=== PATIENT | female | born 1995 ===

== ENCOUNTER → 2025-04-12 14:30 | Outpatient (REF) | payer OTHER, SELFPAY ==
--- NOTE | 2025-05-08 | HM_ITS ---
* Total monitoring time 3 days. * Underlying rhythm is sinus with an average rate of 100/Min. About 48% of the time, rate > 100/Min. * Rare supraventricular ectopy. * Isolated ventricular ectopic beat. * Dizziness/lightheadedness in patient diary correlates with sinus rhythm and sinus tachycardia. MTDD
--- OUTSIDE RECORDS SUMMARY | 2025-05-08 19:25 | XMS_ITS | Encounter Summary ---
Author Organization [facility] Address [address] [facility] [address] [facility] [address] [place] [address] Phone Care Team Providers Care Unhairing Machine Operator Name Role Phone Cathy Latif MD Primary Care P rovider Pierce Soto MD Unavailable [phone] Cathy Latif MD Primary Care P rovider Pcp, Unknown Primary Care Provider Unavailabl e Encounter Details Date Type Department Care Team (Late st Contact Info) Description 01/27/2022 Procedure Pass [facility], Ct Scan - [facility] [address] [place] [address] Social History Tobacco Use Types Packs/Day Years Used Date Smoking Tobacco: Never Smokeless Tobacco: Never Alcohol Use Standard Drinks/Week Comments Not Currently 0 (1 standard drink = 0.6 oz pur e alcohol) Comments Unknown Sex and Gender Information Value Date Recorded Sex Assigned at Female 05/01/2020 5:54 PM EDT Legal Sex Female 4:31 PM EST Gender Identity Female 05/01/2020 5:54 PM EDT Sexual Orientation Straight 05/03/2020 10 :51 AM EDT documented as of this encounter Plan of Treatment Upcoming Encounters Date Type Department Care Team (Late st Contact Info) Description 04/12/2025 Procedure Pass [facility] Echo Lab [address] [place] [address] 05/16/2025 7:30 AM EDT Appointment [facility] Echo Lab [address] [place] [address] Arleth Henderson, DO [address] [place] [address] [email or web address] 05/16/2025 9:00 AM EDT Infusion [facility] at [address] [address] Arleth Henderson, [address] [place] [address] [email or web address] 05/25/2025 12:00 PM EDT Routine [facility] OBGYN & Midwifery [address] [place] [address] [place] [address] Bety Elmore MD [address] [place] [address], [address] [place] [address] 08/03/2025 2:20 PM EST Infusion [facility] at [address] [address] Arleth Henderson, [address] [place] [address] [email or web address] 08/03/2025 3:30 PM EST Office Visit [facility] at [address] [address] Phuong Terry MBBS [address] [place] [address] documented as of this encounter Visit Diagnoses Not on filedocumented in this encounter Additional Health Concerns Infection Onset Date Last Indicated Resolved Time COVID-19 04/21/2025 04/21/2025 documented as of this encounter Care Teams Unhairing Machine Operator Relationship Specialty Start Date End Date Cathy Latif MD [email or web address] PCP - General Internal Medicine 09/21/19 04/02/23 Cathy Latif MD [address] [place] [address] [email or web address] PCP - General Internal Medicine 04/03/23 03/29/25 Pcp, Unknown PCP - General 03/30/25 Pierce Soto MD [address] [place] [id number] [email or web address] Primary Oncologist Medical Oncology 08/06/20 documented as of this encounter Additional Source Comments The information contained in this document represents components of the legal health record. It is not the complete legal health record.[facility]
--- OUTSIDE RECORDS SUMMARY | 2025-05-08 19:25 | XMS_ITS ---
Author Organization [facility] Address [address] [facility] [address] [place] [address] Phone Care Team Providers Care Pickle Processor Name Role Phone Pierce Soto MD Unavailable [phone] Pcp, Unknown Primary Care Provider Unavailabl e Active Problems Patient Care Coordination No te Formatting of this note migh t be different from the original. Height 171cm no shoes 10/07/21 [employer] fax# [phone] (for Rituxan scripts) [employer] ph# [phone] Problem Noted Date Diagnosed Date Nausea/vomiting in 03/21/2025 Assessment & Plan (03/21/2025 12:15 PM EDT): Has actually worsened since last visit. Feels nauseated all day but worst in the morning. Vomits mostly with odor sensitivity. Has low appetite and food aversions, sometimes vomits right after breakfast. Worsened with doxylamine. We reviewed dietary measures and non-pharmacologic remedies. Also suggested she try meclizine (benadryl makes her too drowsy) and zofran for breakthrough nausea. Reviewed potential side effects for each. Check in at n.v. Rubella non-immune status, antepartum 03/16/2025 Maternal varicella, non-immune 03/16/2025 Obesity 03/07/2025 Overview (03/21/2025): Obesity in (BMI >30) BMI at Intake Date Obesity plan of care discussed Pre- BMI > 48 by 32 weeks' gestation, transfer to tertiary care Recommend daily baby aspirin (162 mg daily) if another risk factor is present (nulliparity, family h/o pre-eclampsia in mother or sister, age >= 35, IVF , previous with SGA, previous stillbirth, interval >= 10 years between pregnancies) First trimester screen for diabetes - HgbA1c or 1-hr glucose tolerance test Nutrition counseling 11-20lb weight gain surveillance: Pre- BMI 35.0-39.9, weekly testing at 36 weeks, EFW at 32 and 36 weeks Pre- BMI 40 or more, weekly testing at 34 weeks, EFW 32 and 36 weeks Induction only if indicated PP joelle according to guidelines Struggled to lose weight prior to but could not Feels she's never been in shape, does 10-15k steps daily, hikes a hill every day Tries to eat healthy, berries, avocados salmon. Fixed weight now for some time at her functional maximum around 200lbs. Doing well so far Assessment & Plan (03/09/2025 11:30 AM EDT): We discussed the implications of a maternal BMI > 30. We discussed the increased risks of miscarriage, defects (mainly congenital heart disease and neural tube defects), gestational diabetes, hypertensive disorders of , delivery, and perioperative complications such as wound infection and thromboembolic events. We discussed a general recommendation growth ultrasounds at 32 and 36 weeks. She is aware that we do not recommend early delivery if the antepartum testing remains reassuring. ASCUS (atypical squamous hattie ls of undetermined significance) on gynecologic Papanicolaou smear complicating , antepartum 02/23/2025 Overview (04/18/2025): HPV negative , supervision of, high-risk[facility] Overview (04/28/2025): MD Group PN care? * screening plans cfDNA Baby ASA? yes Rh pos GC/Chlam neg PAP ASCUS HPV 02/2025, repeat one year Flu * COVID-19 * Hgb * GTT * Repeat RPR * Tdap * EPDS * PPBC * GBS * Feeding Plan * MFM consult 03/07/25: 24-hr urine recommended in early , q trimester assessment of Cr and LFTs Has a lot of fear because her mother had many miscarriages, including one at 20 weeks Would go to visits and had no heartbeat seen, suspects may have been due to gestational diabetes but does not have diabetes outside of . 3 miscarriages. Assessment & Plan (03/21/2025 12:14 PM EDT): Janette is still having a lot of nausea and vomiting, see problem list for plan. Also having some lower abdominal cramping - we discussed that this is likely secondary to uterine growth, also reviewed warning signs and reasons to call practice. Discussed and scheduled anatomy scan. Assessment & Plan (03/07/2025 3:00 PM EDT): Currently 15 weeks Had some bleeding at 7 weeks Assessment & Plan (02/20/2025 5:24 PM EDT): Barring any complications from a potential recurrent NHL, anticipate this will be uncomplicated. 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 10/03/2019 Overview (03/07/2025): Diagnosed in 2019 Was asymptomatic, was planning to fly to the for grad school and had routine blood work Also had some abnormal abdominal pain Blood plus imaging diagnosed an eggplant sized tumor and multiple others Treated with chemotherapy in [place], Rituximab and Bendamustine, had 6 cycles in [facility], completed treatment there and was considered cancer free after 3 cycles Has a chemo port, doesn't have a removal plan, maybe after the In began maintenance therapy with chemo and monoclonal antibody - > Stopped mid [address] scans since 2019 As of intake, not taking meds. Last scan 08/2024, plan for every 2-3 years Had clearance for by Oncology Liver and kidney function checked every 3-6 months. Never required any cardiac checks Feels well Assessment & Plan (03/21/2025 12:12 PM EDT): She had MFM consult, note in chart. No specific recs except to check 24-hr urine protein, and assess Cr and LFTs q trimester. Lab orders entered today. Assessment & Plan (03/09/2025 11:29 AM EDT): We discussed that in general in would not be anticipated that her history of lymphoma would have an increased recurrence risk related to the hormones of . That being said, her surveillance with her team should continue as previously scheduled. Imaging for recurrence is available in . Additionally, is not a contraindication to certain treatments were there to be a recurrence. From the standpoint of impact on , her prior medications may have some residual impact on her liver and kidneys, although her laboratory studies in general thus far have been favorable. We discussed that kidneys are responsible for blood pressure management, and so injured kidneys may indicate a higher possibility of preeclampsia risk. I recommend surveillance of Cr and LFTs each trimester, and a 24 hour urine protein/creatinine collection in early . Beyond these concerns, I would overall anticipate the highest likelihood for Janette to have an uncomplicated future with plan for full term labor and vaginal delivery. Assessment & Plan (02/20/2025 5:24 PM EDT): Has been in remission for a couple of years. Had recently normal lab work. Plan for repeat lab work at the end of July or early August. She is [place] [facility] [place] [facility]. Her CT scan in August of this year showed no evidence of active disease. She does have a chemotherapy port in place which she has not yet had removed. 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 Past Treatment and Therapy Plans TREATMENT PLAN Plan Name Start Date Discontinue Date Treatment Medications Discontinue Reason Plan Provider Cycles RITUXIMAB (IV/SQ) MAINTENANCE EVERY 12 WEEKS [facility] 11/09/19 20 04/10/2021 riTUXimabriTUXimab (RITUXAN) IVPB in NS 1 mg/mLriTUXimab (RITUXAN) IVPB 250 mL (250 mg - 1000 mg) (QS Base) g. Patient Preference Pierce Soto MD 6 of 7 cycles started RITUXIMAB (IV/SQ) MAINTENANCE EVERY 12 WEEKS 11/09/1910/03/2019 No medications scheduled. m. Entered in error Pierce Soto MD No cycles in plan RITUXIMAB (IV/SQ) MAINTENANCE EVERY 8 WEEKS 10/10/1910/03/2019 No medications scheduled. m. Entered in error Pierce Soto MD Treatment not started Resolved Problems Problem Noted Date Diagnosed Date Resolved Date Follicular lymphoma 02/10/2019 04/28/20 25
--- OUTSIDE RECORDS SUMMARY | 2025-05-08 19:25 | XMS_ITS | Encounter Summary ---
Author Organization [facility] Address [address] [facility] [address] [place] [address] Phone Care Team Providers Care Scada Engineer Name Role Phone Pierce Soto MD Unavailable [phone] Cathy Latif MD Primary Care P [email or web address] Pcp, Unknown Primary Care Provider Unavailabl e Encounter Details Date Type Department Care Team (Late st Contact Info) Description 08/22/2024 Procedure Pass [facility], Ct Scan - [facility] [address] [place] [address] Social History Tobacco Use Types Packs/Day Years Used Date Smoking Tobacco: Never Smokeless Tobacco: Never Alcohol Use Standard Drinks/Week Comments Not Currently 0 (1 standard drink = 0.6 oz pur e alcohol) Education Answer Date Recorded Are you interested in more education? Not on otf e 12/19/2022 Are you concerned about learning? Not on file 12/19/2022 No 12/19/2022 No 12/19/2022 Digital Access Answer Date Recorded No 01/17/2023 No 01/17/2023 Reliable internet access at home? Not on file 01/17/2023 Device with a working camera? Not on file Intimate Partner Violence Answer Date R ecorded Are you denied basic needs s uch as food, clothing, or medical care? No 08/21/2024 In the past 12 months have y ou been in a relationship with a person who hurts, threatens, or tries to control you? No 08/21/2024 Are you denied basic needs s uch as food, clothing, or medical care? No 08/21/2024 In the past 12 months have y ou been in a relationship with a person who hurts, threatens, or tries to control you? No 08/21/2024 Comments Unknown Sex and Gender Information Value Date Recorded Sex Assigned at Female 05/01/2020 5:54 PM EDT Legal Sex Female 4:31 PM EST Gender Identity Female 05/01/2020 5:54 PM EDT Sexual Orientation Straight 05/03/2020 10 :51 AM EDT documented as of this encounter Plan of Treatment Upcoming Encounters Date Type Department Care Team (Late st Contact Info) Description 04/12/2025 Procedure Pass [facility] Echo Lab [address] [place] [address] 05/16/2025 7:30 AM EDT Appointment [facility] Echo Lab [address] [place] [address] Arleth Henderson, DO [address] [place] [address] [email or web address] 05/16/2025 9:00 AM EDT [facility] at [address] [address] Arleth Henderson, DO [address] [place] [address] [email or web address] 05/25/2025 12:00 PM EDT Routine [facility] OBGYN & Midwifery [address] [place] [address] [place] [address] Bety Elmore MD [address] [place] [address], [address] [place] [address] 08/03/2025 2:20 PM EST Infusion [facility] at [address] [address] Arleth Henderson, DO [address] [place] [phone] [email or web address] 08/03/2025 3:30 PM EST Office Visit [facility] at [address] [address] Phuong Terry MBBS [address] [place] [address] [email or web address] documented as of this encounter Visit Diagnoses Not on filedocumented in this encounter Additional Health Concerns Infection Onset Date Last Indicated Resolved Time COVID-19 04/21/2025 04/21/2025 documented as of this encounter Care Teams Scada Engineer Relationship Specialty Start Date End Date Cathy Latif MD [address] [place] [address] [email or web address] PCP - General Internal Medicine 04/03/23 03/29/25 Pcp, Unknown PCP - General 03/30/25 Pierce Soto MD [address] [place] [address] [email or web address] Primary Oncologist Medical Oncology 08/06/20 documented as of this encounter Additional Source Comments The information contained in this document represents components of the legal health record. It is not the complete legal health record.[facility]
--- OUTSIDE RECORDS SUMMARY | 2025-05-08 19:25 | XMS_ITS | Encounter Summary ---
Author Organization [facility] Address [address] [place] [address] [place] [address] Phone Care Team Providers Care Production Recovery Operator Name Role Phone Pierce Soto MD Unavailable [phone] Pcp, Unknown Primary Care Provider Unavailabl e Reason for Referral * Outpatient Procedure - Authorized Specialty Diagnoses / Procedures Referred By [facility] Referred To Contact Radiology Diagnoses Tachycardia, unspecified Procedures Adult Echo TTE Arleth Henderson DO [address] [place] [address] Phone: tel: fax: [email or web address] Referral ID Status Reason Start Date Expiration Date V isits Requested Visits Authorized [id number] Authorized 04/12/2025 04/12/2026 1 1 Encounter Details Date Type Department Care Team (Late st Contact Info) Description 04/12/2025 Transcribe Orders Virtual Department [address] [place] [address] Arleth Henderson DO [address] [place] [address] [email or web address] Tachycardia, unspecified (Primary Dx) Social History Tobacco Use Types Packs/Day Years [...] as food, clothing, or medical care? No 01/10/2025 In the past 12 months have y ou been in a relationship with a person who hurts, threatens, or tries to control you? No 01/10/2025 Are you denied basic needs s uch as food, clothing, or medical care? No 01/10/2025 In the past 12 months have y ou been in a relationship with a person who hurts, threatens, or tries to control you? No 01/10/2025 Estimated Date of Delivery Comme nts Yes 08/27/2025 Based on last me nstrual period of 11/20/2024 (Exact Date) Sex and Gender Information Value Date Recorded Sex Assigned at Female 05/01/2020 5:54 PM EDT Legal Sex Female 4:31 PM EST Gender Identity Female 05/01/2020 5:54 PM EDT Sexual Orientation Straight 05/03/2020 10 :51 AM EDT documented as of this encounter Plan of Treatment Upcoming Encounters Date Type Department Care Team (Late st Contact Info) Description 04/12/2025 Procedure Pass [facility] Echo Lab [address] [place] [address] 05/16/2025 7:30 AM EDT Appointment [facility] Echo Lab [address] [place] [address] Arleth Henderson, DO [address] [place] [phone] [email or web address] 05/16/2025 9:00 AM EDT Infusion [facility] at [address] [address] Arleth Henderson DO [address] [place] [address] [email or web address] 05/25/2025 12:00 PM EDT Routine [facility] OBGYN & Midwifery [address] [place] [address] [place] [address] Bety Elmore MD [address] [place] [address], [address] [place] [address] 08/03/2025 2:20 PM EST Infusion [facility] at [address] [address] Arleth Henderson DO [address] [place] [address] [email or web address] 08/03/2025 3:30 PM EST Office Visit [facility] at [address] [address] Phuong Terry MBBS [address] [place] [phone] [email or web address] Scheduled Orders Name Type Priority Associated Diagnoses Orde r Schedule Adult Echo TTE Echocardiography Routine Tachycardia, unspecified Expected: 04/12/2025, Expires: 04/12/2026 documented as of this encounter Visit Diagnoses Diagnosis Tachycardia, unspecified- Primary documented in this encounter Additional Health Concerns Infection Onset Date Last Indicated Resolved Time COVID-19 04/21/2025 04/21/2025 documented as of this encounter Care Teams Production Recovery Operator Relationship Specialty Start Date End Date Pcp, Unknown PCP - General 03/30/25 Pierce Soto MD [address] [place] [phone] ([email or web address] Primary Oncologist Medical Oncology 08/06/20 documented as of this encounter Additional Source Comments The information contained in this document represents components of the legal health record. It is not the complete legal health record.[facility]
--- OUTSIDE RECORDS SUMMARY | 2025-05-08 19:25 | XMS_ITS | Encounter Summary ---
Author Organization [facility] Address [address] [place] [phone] Phone Care Team Providers Care Network Architect Name Role Phone Pierce Soto MD Unavailable [phone] Cathy Latif MD Primary Care P rovider Pcp, Unknown Primary Care Provider Unavailabl e Encounter Details Date Type Department Care Team (Late st Contact Info) Description 07/27/2024 Transcribe Orders Virtual Department [address] [place] [address] Clair Mauricio CNP [address] [place] [id number] [email or web address] PCOS (polycystic ovarian syndrome) (Primary Dx) Social History Tobacco Use Types [...] with a working camera? Not on file Comments Unknown Sex and Gender Information Value Date Recorded Sex Assigned at Female 05/01/2020 5:54 PM EDT Legal Sex Female 4:31 PM EST Gender Identity Female 05/01/2020 5:54 PM EDT Sexual Orientation Straight 05/03/2020 10 :51 AM EDT documented as of this encounter Plan of Treatment Upcoming Encounters Date Type Department Care Team (Late st Contact Info) Description 04/12/2025 Procedure Pass [facility] [address] [place] [address] 05/16/2025 7:30 AM EDT Appointment [facility] [address] [place] [address] Arleth Henderson, [address] [place] [address] [email or web address] 05/16/2025 9:00 AM EDT Infusion [facility] at [address] [address] Arleth Henderson, [address] [place] [address] [email or web address] 05/25/2025 12:00 PM EDT Routine [facility] [address] [place] [address] [place] [address] Bety Elmore MD [address] [place] [address], [address] [place] [address] 08/03/2025 2:20 PM EST Infusion [facility] at [address] [address] Arleth Henderson DO [address] [place] [address] [email or web address] 08/03/2025 3:30 PM EST Office Visit [facility] at [address] [place] [address] Phuong Terry MBBS [address] [place] [address] [email or web address] documented as of this encounter Results * US PELVIS TRANSABDOMINAL PLUS TRANSVAGINAL WITH DOPPLER (08/25/2024 4:54 PM EST) Anatomical Region Laterality Modality Pelvis, Uterus/Adnexa Ultrasound 08/25/2024 5:40 PM EST Impressions 08/25/2024 5:43 PM EST Normal pelvic ultrasound. Narrative 08/25/2024 5:43 PM EST US PELVIS TRANSABDOMINAL PLUS TRANSVAGINAL WITH DOPPLER Referring clinician's provided indication for this examination in Epic: Outside Radiology Order; POS TECHNIQUE: Pelvic Ultrasound Transabdominal performed for global imaging of the pelvis. Pelvic Ultrasound Transvaginal performed for detailed imaging of the endometrium and/or adnexa. Color and spectral Doppler examination performed. COMPARISON: CT ABDOMEN/PELVIS WITH CONTRAST FINDINGS: Uterus: Size: 6 x 3.1 x 4 cm. Myometrium: Normal. Endometrium: Normal. Thickness: 3 mm. Right adnexa: Ovary: Normal 2.6 x 2.9 x 1.8 cm Adnexal Doppler: Color and spectral Doppler of the right ovary shows normal arterial and venous waveforms. Left adnexa: Ovary: Normal 2.2 x 1.5 x 1.3 cm Adnexal Doppler: Color and spectral Doppler of the left ovary shows normal arterial and venous waveforms. Free fluid: No significant free fluid. Procedure Note Harinder Vaca MD - 08/25/2024 US PELVIS TRANSABDOMINAL PLUS TRANSVAGINAL WITH DOPPLER Referring clinician's provided indication for this examination in Epic:Outside Radiology Order; POS TECHNIQUE: Pelvic Ultrasound Transabdominal performed for global imagingof the pelvis. Pelvic Ultrasound Transvaginal performed for detailedimaging of the endometrium and/or adnexa. Color and spectral Dopplerexamination performed. COMPARISON: CT ABDOMEN/PELVIS WITH CONTRAST FINDINGS: Uterus: Size: 6 x 3.1 x 4 cm. Myometrium: Normal. Endometrium: Normal. Thickness: 3 mm. Right adnexa: Ovary: Normal 2.6 x 2.9 x 1.8 cm Adnexal Doppler: Color and spectral Doppler of the right ovary showsnormal arterial and venous waveforms. Left adnexa: Ovary: Normal 2.2 x 1.5 x 1.3 cm Adnexal Doppler: Color and spectral Doppler of the left ovary shows normalarterial and venous waveforms. Free fluid: No significant free fluid. IMPRESSION: Normal pelvic ultrasound. us Laisa-Sheili Mauricio FIELD PROJECT MANAGER IMG US PELVIS Final Re sult documented in this encounter Visit Diagnoses Diagnosis PCOS (polycystic ovarian syndrome)- Primary Polycystic ovaries PCOS (polycystic ovarian syndrome) Polycystic ovaries documented in this encounter Additional Health Concerns Infection Onset Date Last Indicated Resolved Time COVID-19 04/21/2025 04/21/2025 documented as of this encounter Care Teams Network Architect Relationship Specialty Start Date End Date Cathy Latfi MD [address] [place] [address] [email or web address] PCP - General Internal Medicine 04/03/23 03/29/25 Pcp, Unknown PCP - General 03/30/25 Pierce Soto MD [address] [place] [id number] [email or web address] Primary Oncologist Medical Oncology 08/06/20 documented as of this encounter Additional Source Comments The information contained in this document represents components of the legal health record. It is not the complete legal health record.[facility]
--- OUTSIDE RECORDS SUMMARY | 2025-05-08 19:25 | XMS_ITS | Clinical Summary ---
Author Organization [facility] Address [address] [place] [phone] Phone Care Team Providers Care Furniture Sales Consultant Name Role Phone Pierce Soto MD Unavailable [phone] Pcp, Unknown Primary Care Provider Unavailabl e Allergies Active Allergy Reactions Criticality Noted Date Comments Cycloserine Nausea and/or Vomiting 10/03/2019 Medications 28 mg iron- 800 mcg Tab Take 1 tablet by mouth daily. 5 Active meclizine (ANTIVERT) 25 mg tablet Take 1 tablet (25 mg total) by mouth every 8 (eight) hours as needed for nausea. 60 tablet 1 5 Active ondansetron (ZOFRAN-ODT) 4 MG disintegrating tablet Take 1 tablet (4 mg total) by mouth every 8 (eight) hours as needed for nausea. 45 tablet 1 5 Active aspirin 81 mg chewable tablet Take 2 tablets (162 mg total) by mouth daily. 180 tablet 2 5 Active ferrous sulfate 325 mg (65 mg [place] iron) tablet Take 1 tablet (325 mg total) by mouth daily with breakfast. 90 tablet 5 Active Active Problems Patient Care Coordination No te Formatting of this note migh t be different from the original. Height 171cm no shoes 10/07/21 [facility] fax# [phone] (for Rituxan scripts) [facility] ph# [phone] Problem Noted Date Diagnosed Date Nausea/vomiting in [...] and 36 weeks Induction only if indicated PRIYA lai according to guidelines Struggled to lose weight [...] HPV negative , supervision of, high-risk, second [facility] 02/16/2025 Overview (04/28/2025): MD Group PN care? 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 Assessment & Plan (02/20/2025 5:24 PM EDT): Has been in remission for a couple of years. Had recently normal lab work. Plan for repeat lab work at the end of July or early August. She is followed by hematology oncology at the [facility]. Her CT scan in August of this year showed no evidence of active disease. She does have a chemotherapy port in place which she has not yet had removed. Estimated Date of Delivery Comme nts Yes 08/27/2025 Based on last me nstrual period of 11/20/2024 (Exact Date) Resolved Problems Problem Noted Date Diagnosed Date Resolved Date Follicular lymphoma 02/10/2019 04/28/20 Encounters Date Type Department Care Team Description 05/02/2025 10:20 AM EDT Routine [facility]ery [address] [place] [address] [place] [address] Paul Rojas MD GA: 23w2d 05/01/2025 9:59 AM EDT - 05/01/2025 11:59 PM EDT [facility] [address] [place] [address] Ananya Chavez CNM Discharge Disposition: Home or Self Care 04/28/2025 1:30 PM EDT Routine [facility] [address] [place] [address] [place] [address] Corine Rosen MD GA: 22w5d 04/23/[address] [facility] Obstetrics - Virtual Department [address] [place] [address] Paul Rojas MD OB Concern 04/21/2025 Telephone [facility] Midw[facility]ery [address] [place] [address] [place] [address] Hill Briceno LPN Covid positive 04/18/2025 8:40 AM EDT Routine [facility] Midwifery [address] [place] [address] [place] [address] Paul Rojas MD GA: 21w2d 04/17/2025 Telephone [facility] Midw[facility]ery [address] [place] [address] [place] [address] Riana Bautista CNM COVID-19 Inquiry 04/13/2025 Telephone [facility] at [address] [address] Pierce Soto MD 04/12/2025 Transcribe Orders Virtual Department [address] [place] [address] Arleth Henderson, DO Tachycardia, unspecified (Primary Dx) 04/06/2025 4:30 PM EDT - 04/06/2025 11:59 PM EDT Hospital Encounter [facility] [address] [place] [address] Riana Bautista CNM Discharge Disposition: Home or Self Care 03/30/2025 1:13 PM EDT - 03/30/2025 11:59 PM EDT Hospital Encounter [facility] [address] [place] [address] Ananya Chavez CNM Discharge Disposition: Home or Self Care 03/28/2025 2:50 PM EDT - 03/28/2025 11:59 PM EDT Hospital Encounter [facility] [address] [place] [address] Ananya Chavez CNM Discharge Disposition: Home or Self Care 03/21/2025 8:30 AM EDT Routine [facility] [address] [place] [address] [place] [address] Ananya Chavez CNM GA: 17w2d 03/15/2025 Telephone [facility] [address] [place] [address] Maya Rivera RN Test Results ([facility]) 03/07/2025 2:30 PM EDT Telemedicine [facility] Maternal Medicine Consultations [address] [place] [address], 4[address] Floor, [address] [place] [address] Brenda Johnson MD, MPH Supervision of high-risk , first trimester (Primary Dx); 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 (Primary Dx) 02/13/2025 2:40 PM EDT Infusion [facility] at [address] [address] Pierce Soto MD Bang, Samantha J, RN 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 02/07/2025 Orders Only [facility] at [address] [address] Rica Avendaño CMA 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 (Primary Dx) from Last 3 Months Immunizations Immunization Administration Dates Next Due COVID-19 (Pre-06/15) Moderna Vaccine, mRNA, PF 12/18/2020,11/20/2020 HPV9 09/11/2020,04/06/2020,09/21/2019 Influenza Quadrivalent MDCK Preservative Free IM 04/28/2023 Influenza Quadrivalent Preservative Free IM 05/25,09/11/2020,09/20/2019 Influenza Trivalent MDCK Pre servative Free IM 10/14/2024 Meningococcal B, OMV (MenB-4C) 03/04/2021,2020 Tdap 04/06/2020 Social History Tobacco Use Types Packs/Day Years [...] Orientation Straight 05/03/2020 10 :51 AM EDT Last Filed Vital Signs Vital Sign Reading Time Taken Comments Blood Pressure 124/70 05/02/2025 10:35 AM EDT Pulse 98 02/13/2025 3:10 PM EDT Temperature 36.6 C (97.8 F) 02/13/2025 3:10 PM EDT Respiratory Rate 18 01/10/2025 11:16 PM EDT Oxygen Saturation 100% 02/13/2025 3:10 PM EDT Inhaled Oxygen Concentration - - Weight 96.6 kg (213 lb) 05/02/2025 10:35 AM EDT Height 170.2 cm (5' 7 ) 02/16/2025 10:10 AM EDT Body Mass Index 33.36 02/16/2025 10:10 AM EDT Plan of Treatment Upcoming Encounters Date Type Department Care Team (Late st Contact Info) Description 04/12/2025 Procedure Pass [facility] Echo Lab [address] [place] [address] 05/16/2025 7:30 AM EDT Appointment [facility] Echo Lab [address] [place] [address] Arleth Henderson DO [address] [place] [address] [email or web address] 05/16/2025 9:00 AM EDT Infusion [facility] [address] [place] [address] Arleth Henderson DO [address] [place] [address] [email or web address] 05/25/2025 12:00 PM EDT Routine [facility]YN & Midwifery [address] [place] [address] [place] [address] Bety Elmore MD [address] [facility], [address] [place] [address] 08/03/2025 2:20 PM EST Infusion [facility] at [address] [address] Arleth Henderson DO [address] [place] [address] [email or web address] 08/03/2025 3:30 PM EST Office Visit [facility] at [address] [address] Phuong Terry MBBS [address] [place] [phone] [email or web address] Health Maintenance Due Date Last Done Comments DEPRESSION SCREENING 2008 PNEUMOCOCCAL VACCINES (0-49 years) (1 of 2 - PCV) 10/28/2015 INFLUENZA VACCINE (#1) 2025 , 04/28/2023, 06/21/2021, Additional history exists RSV VACCINE (1 - Risk 1-dose series) 07/02/2025 PAP SMEAR 02/21/2028 02/20/2025 Adult Td,Tdap Booster 04/06/2030 04/06/2020 MENINGOCOCCAL VACCINES (B) Completed 03/04/2021, COVID-19 VACCINE Completed 10/14/2024, , 10/04/2021, Additional history exists HEPATITIS C SCREENING Completed 02/22/2025 HIV ONE-TIME SCREENING (18-65 YEARS) Completed 02/22/2025 SMOKING STATUS SCREENING (Once After 26 Yrs) Completed 05/02/2025 HEPATITIS A VACCINES Aged Out No long er eligible based on patient's age to complete this topic HIB VACCINES Aged Out No longer eligi ble based on patient's age to complete this topic MENINGOCOCCAL VACCINES (ACWY) Aged Out No longer eligible based on patient's age to complete this topic Medical Devices Not on file Procedures Procedure Name Priority Date/Time Associated Diagnosis Comments US OB GREATER THAN OR EQUAL TO 14 WEEKS ANATOMICAL COMPLETE SURVEY Routine 05/01/2025 10:52 AM EDT Supervision of high-risk , first trimester SARS-COV-2 (COVID-19) AG BINAXNOW Routine 04/21/2025 3:30 PM EDT CBC Routine 04/06/2025 4:31 PM EDT Frequent nosebleeds TIMED URINE DATA Routine 03/30/2025 1:17 PM EDT TOTAL PROTEIN, 24 HR URINE Routine 03/30/2025 1:17 PM EDT Supervision of high-risk , first trimester CREATININE/EGFR Routine 03/28/2025 2:51 PM EDT Supervision of high-risk , first trimester LFTS (HEPATIC PANEL) Routine 03/28/2025 2:51 PM EDT Supervision of high-risk , first trimester HC BLOOD TYPING SEROLOGIC ABO Routine 02/22/2025 12:09 PM EDT Supervision of high-risk , first trimester MISCELLANEOUS LAB TEST Routine 02/22/2025 12:09 PM EDT Supervision of high-risk , first trimester MISCELLANEOUS LAB TEST Routine 02/22/2025 12:09 PM EDT Supervision of high-risk , first trimester CBC Routine 02/22/2025 12:09 PM EDT Supervision of high-risk , first trimester HEMOGLOBIN A1C Routine 02/22/2025 12:09 PM EDT Supervision of high-risk , first trimester SYPHILIS ANTIBODY SCREEN ASSAY Routine 02/22/2025 12:09 PM EDT Supervision of high-risk , first trimester HEPATITIS B SURFACE ANTIGEN Routine 02/22/2025 12:09 PM EDT Need for hepatitis B screening test HEPATITIS C ANTIBODY, QUALITATIVE Routine 02/22/2025 12:09 PM EDT Need for hepatitis C screening test HIV-1/2 ANTIGEN/ANTIBODY Routine 02/22/2025 12:09 PM EDT Screening for human immunodeficiency virus RUBELLA ANTIBODY, IGG Routine 02/22/2025 12:09 PM EDT Supervision of high-risk , first trimester VARICELLA-ZOSTER (VZV) ANTIBODY, IGG Routine 02/22/2025 12:09 PM EDT Supervision of high-risk , first trimester CHLAMYDIA TRACHOMATIS AND NEISSERIA GONORRHOEAE NUCLEIC ACID DETECTION Routine 02/20/2025 5:02 PM EDT Screening for STD (sexually transmitted disease) US OB LESS THAN 14 WEEKS TRANSABDOMINAL Routine 02/20/2025 4:29 PM EDT Supervision of high-risk , first trimester PAP TEST Routine 02/20/2025 12:00 AM EDT LDH Routine 02/13/2025 2:40 PM EDT 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 Single live IUP with above dating criteria. 2. The anatomic survey is grossly normal. Narrative 05/01/2025 1:37 PM EDT Procedure: US OB GREATER THAN OR EQUAL TO 14 WEEKS ANATOMICAL COMPLETE SURVEY 05/01/2025 10:11 AM US Indications: Anatomic Survey. Comparison: No relevant recent comparisons. Maternal age: 29 years. Technique: Transabdominal scan was performed. Color Doppler and M-mode imaging was performed to assess vascularity. FINDINGS: number: 1 position: Breech. Placental position: Anterior no previa. Placental Grade: 2 Placental appearance: Normal. Amniotic fluid assessment: The amniotic fluid is visually within normal limits. FHR: 144.0 bpm Estimated weight (EFW): 618.9 grams +/- 1 lb 6 oz. 62% based on established MERRY Hadlock. Gestational Age by LMP: 23 weeks 1 day(s) Ultrasound EGA: 23 weeks 4 day(s) Ultrasound MERRY: [id number] Established MERRY: 23 weeks 1 day(s) Biometry: BPD: 5.74 cm, consistent with 23 weeks 4 day(s) and 61% Head Circumference: 20.51 cm, consistent with 22 weeks 5 day(s) and 17% Abdominal Circumference: 19.23 cm, consistent with 24 weeks 0 day(s) and 68% Femur Length: 4.19 cm, consistent with 23 weeks 5 day(s) and 55% Humerus: 3.87 cm, consistent with 23 weeks 6 day(s) and 57% Cerebellum: 2.33 cm, consistent with 23 weeks 0 day(s) Lat Vent: 0.49 cm Cist Ma.51 cm HC/AC: 1.07 FL/BPD: 0.73 FL/AC: 0.22 Documented anatomy: Head/Neck: Lateral ventricles - Seen Choroid plexus - Seen Midline falx - Seen Cavum septi pellucidi - Seen Cerebellum - Seen Cisterna magna - Seen Nuchal fold - Seen Face: Orbit/Lenses - Seen Upper lip - Seen Profile - Seen Chest: Four-chamber view - Seen Left ventricular outflow tract - Seen Right ventricular outflow tract - Seen Aortic Arch - Seen Ductal Arch - Seen 3 Vessel View - Seen 3 VTV - Seen Abdomen: Stomach - Seen Diaphragm - Seen Kidneys - Seen Urinary bladder - Seen Abdominal cord insertion - Seen Three-vessel cord - Seen Placental Cord Insertion - Seen Limbs: Right arm and hand present - Seen Left arm and hand present - Seen Right leg and foot present - Seen Left leg and foot present - Seen Spine (in sagittal and transverse plane): Cervical - Seen Thoracic - Seen Lumbar - Seen Sacral - Seen Motion: Normal motion was observed. Cervix: 3.07 cm Uterine myometrium: Grossly normal Right ovary: Not visualized. Left ovary: Not visualized. Tech Comments: Scott . EFW = 62%. anatomy appears grossly normal. Active fetus. Normal fluid. Procedure Note Lucien Espino MD - 05/01/2025 Procedure: US OB GREATER THAN OR EQUAL TO 14 WEEKS ANATOMICAL COMPLETESURVEY 05/01/2025 10:11 AM US Indications: Anatomic Survey. Comparison: No relevant recent comparisons. Maternal age: 29 years. Technique: Transabdominal scan was performed. Color Doppler and M-modeimaging was performed to assess vascularity. FINDINGS: number: 1 position: Breech. Placental position: Anterior no previa. Placental Grade: 2 Placental appearance: Normal. Amniotic fluid assessment: The amniotic fluid is visually within normallimits. FHR: 144.0 bpm Estimated weight (EFW): 618.9 grams +/- 1 lb 6 oz. 62% based on established MERRY Hadlock. Gestational Age by LMP: 23 weeks 1 day(s) Ultrasound EGA: 23 weeks 4 day(s) Ultrasound MERRY: [id number] Established MERRY: 23 weeks 1 day(s) Biometry: BPD: 5.74 cm, consistent with 23 weeks 4 day(s) and 61% Head Circumference: 20.51 cm, consistent with 22 weeks 5 day(s) and 17% Abdominal Circumference: 19.23 cm, consistent with 24 weeks 0 day(s) and68% Femur Length: 4.19 cm, consistent with 23 weeks 5 day(s) and 55% Humerus: 3.87 cm, consistent with 23 weeks 6 day(s) and 57% Cerebellum: 2.33 cm, consistent with 23 weeks 0 day(s) Lat Vent: 0.49 cm Cist Ma.51 cm HC/AC: 1.07 FL/BPD: 0.73 FL/AC: 0.22 Documented anatomy: Head/Neck: Lateral ventricles - Seen Choroid plexus - Seen Midline falx - Seen Cavum septi pellucidi - Seen Cerebellum - Seen Cisterna magna - Seen Nuchal fold - Seen Face: Orbit/Lenses - Seen Upper lip - Seen Profile - Seen Chest: Four-chamber view - Seen Left ventricular outflow tract - Seen Right ventricular outflow tract - Seen Aortic Arch - Seen Ductal Arch - Seen 3 Vessel View - Seen 3 VTV - Seen Abdomen: Stomach - Seen Diaphragm - Seen Kidneys - Seen Urinary bladder - Seen Abdominal cord insertion - Seen Three-vessel cord - Seen Placental Cord Insertion - Seen Limbs: Right arm and hand present - Seen Left arm and hand present - Seen Right leg and foot present - Seen Left leg and foot present - Seen Spine (in sagittal and transverse plane): Cervical - Seen Thoracic - Seen Lumbar - Seen Sacral - Seen Motion: Normal motion was observed. Cervix: 3.07 cm Uterine myometrium: Grossly normal Right ovary: Not visualized. Left ovary: Not visualized. Tech Comments: Scott . EFW = 62%. anatomy appears grossly normal.Active fetus. Normal fluid. IMPRESSION: 1. Single live IUP with above dating criteria. 2. The anatomic survey is grossly normal. Ananya Chavez CNM [facility] [place] [facility]STETRIC Final Result * (ABNORMAL) SARS-CoV-2 (COVID-19) Antigen (BinaxNOW) (04/21/2025 3:30 PM EDT) Source Nasal swab SARS-CoV-2 (COVID-19) antigen POSITIVE - Internal QCs acceptable(A ) NEGATIVE - Internal QCs acceptable 04/21/2025 3:30 PM EDT Historical Provider POINT OF CARE TEST ORDERA BLES Final Result * (ABNORMAL) CBC (04/06/2025 4:31 PM EDT) Only the most recent of2 resultswithin the time period is included. WBC 13.25(H) 4.00 - 11.00 K/uL [facility] RBC 3.54(L) 4.00 - 5.20 M/uL [facility] HGB 10.4(L) 12.0 - 16.0 g/dL [facility] HCT 31.3(L) 36.0 - 46.0 % [facility] PLT 256 150 - 450 K/uL [facility] MCV 88.4 80.0 - 100.0 fL [facility] MCH 29.4 27.0 - 31.0 pg [facility] MCHC 33.2 32.0 - 36.0 g/dL [facility] RDW 13.5 11.5 - 14.5 % [facility] MPV 10.0 8.4 - 12.0 fL [facility] NRBC 0.00 0.00 /100 WBCs [facility] ABSOLUTE NRBC 0.00 0.00 K/uL [facility] Blood 04/06/2025 4:31 PM EDT 04/06/2025 4:34 PM EDT us Riana Bautista [facility] LAB BLOOD ORDERABLES F inal Result Performing Organization Address City/[facility]/ZIP Co de Phone Number [address] [address] * Timed urine data (03/30/2025 1:17 PM EDT) COLLECTION DATA URINE [facility] TOTAL VOLUME 3,700 mL [facility] Comment:Corrected on 03/30 A T 1529: previously reported as 3000 03/30/2025 1:17 PM EDT 03/30/2025 1:19 PM EDT us Ananya Chavez [facility] URINE ORDERABLES Edited Result - Final Performing Organization Address City/[facility]/ZIP Co de Phone Number [address] [address] * Total protein, 24 hr urine (03/30/2025 1:17 PM EDT) URINE TOTAL PROTEIN <4.0 mg/dL [facility] Protein, time varied urine (mg/TV) NOT CALCULATED 0 - 165 mg/total output [facility] Urine (Urine) 03/30/2025 1:1 7 PM EDT 03/30/2025 1:19 PM EDT Ananya Chavez [facility] URINE ORDERABLES Final Result Performing Organization Address [facility] Co de Phone Number [address] [address] * Creatinine/eGFR (03/28/2025 2:51 PM EDT) CREATININE 0.50 0.5 - 1.5 mg/dL [facility] EGFR >120 >59 mL/min/1.7 3m2 [facility] Comment:Estimated glomerular filtration rate calculated using the CKD-EPI refit equation. Blood 03/28/2025 2:51 PM EDT 03/28/2025 2:58 PM EDT Ananya Chavez [facility] LAB BLOOD ORDERABLES Final Resul t Performing Organization Address [facility] Co de Phone Number [address] [address] * (ABNORMAL) LFTs (hepatic panel) (03/28/2025 2:51 PM EDT) ALKALINE PHOSPHATASE 46 39 - 117 U/L [facility] TOTAL BILIRUBIN <0.2 0.0 - 1.2 mg/dL [facility] DIRECT BILIRUBIN <0.1 0.0 - 0.2 mg/dL [facility] Bilirubin (Indirect) NOT CALCULATED 0 - 1.5 mg/dL [facility] AST 20 0 - 37 U/L [facility] ALT 14 0 - 40 U/L [facility] TOTAL PROTEIN 6.7 6.5 - 8.0 g/dL [facility] ALBUMIN 3.6(L) 3.9 - 4.8 g/dL [facility] GLOBULIN 3.1 1 - 4.8 g/dL [facility] A/G Ratio 1.16 1.00 - 4.80 RATIO [facility] Blood 03/28/2025 2:51 PM EDT 03/28/2025 2:58 PM EDT Ananya [facility] LAB BLOOD ORDERABLES Final Resul t Performing Organization Address [facility]/ZIP Co de Phone Number [address] [address] * Miscellaneous lab test (02/22/2025 12:09 PM EDT) Only the most recent of2 resultswithin the time period is included. TESTS REQUESTED MYRIAD CELL FREE DNA (PREQUEL) [facility] SPECIMEN/TUBE TYPE SCREEN [facility] REQUEST RECEIVED Request received. A separate order for the requested test will be generated by the laboratory. [facility] Blood 02/22/2025 12:0 9 PM EDT 02/22/2025 12:19 PM EDT Ananya [facility] LAB BLOOD ORDERABLES Final Resul t Performing Organization Address [facility] Co de Phone Number [address] [address] * Screen (02/22/2025 12:09 PM EDT) ABO/Rh B Positive [facility] Antibody Screen Negative [facility] Resulting Agency [facility] Blood 02/22/2025 12:0 9 PM EDT 02/22/2025 12:16 PM EDT Ananya [facility] BLOOD BANK TEST ORDERABLES Final Result Performing Organization Address City/[facility] Co de Phone Number [address] [address] * (ABNORMAL) Rubella antibody, IgG (02/22/2025 12:09 PM EDT) Rubella Ab, IgG Equivocal( A) Positive [facility] Blood (Blood) 02/22/2025 12: 09 PM EDT 02/23/2025 1:22 PM EDT Ananya Chavez CNM NON CULTURE MICROBIOLOGY Final R esult [address] [address] * (ABNORMAL) Varicella-zoster (VZV) antibody, IgG (02/22/2025 12:09 PM EDT) Varicella Ab(s) Negative(A ) Positive [facility] Blood (Blood) 02/22/2025 12: 09 PM EDT 02/23/2025 1:22 PM EDT Ananya Chavez CNM NON CULTURE MICROBIOLOGY Final R esult Performing Organization Address City/[facility]/ZIP Co de Phone Number [address] [address] * HIV-1/2 antigen/antibody (02/22/2025 12:09 PM EDT) HIV-1/2 Antigen/Antibo dy NON-REACTI VE NON-REACTI VE [facility] Blood 02/22/2025 12:0 9 PM EDT 02/22/2025 12:17 PM EDT Ananya Chavez CNM LAB BLOOD ORDERABLES Final Resul t Performing Organization Address City/[facility]/ZIP Co de Phone Number [address] [address] * Hepatitis C antibody, qualitative (02/22/2025 12:09 PM EDT) HCV NON-REACTIV E NON-REACTI VE [facility] Blood 02/22/2025 12:0 9 PM EDT 02/22/2025 12:17 PM EDT Ananya GAYLE LAB BLOOD ORDERABLES Final Resul t Performing Organization Address [facility] Co de Phone Number [address] [address] * Syphilis antibody screen (02/22/2025 12:09 PM EDT) RPR NON-REACTIV E NON-REACTI VE [facility] Blood 02/22/2025 12:0 9 PM EDT 02/22/2025 12:17 PM EDT Ananya GAYLE LAB BLOOD ORDERABLES Final Resul t Performing Organization Address [facility] Co de Phone Number [address] [address] * Hepatitis B surface antigen (02/22/2025 12:09 PM EDT) HBV SURFACE ANTIGEN NON-REACTI VE NON-REACTI VE [facility] Blood 02/22/2025 12:0 9 PM EDT 02/22/2025 12:17 PM EDT Ananya GAYLE LAB BLOOD ORDERABLES Final Resul t Performing Organization Address [facility] Co de Phone Number [address] [address] * Hemoglobin A1c (02/22/2025 12:09 PM EDT) HEMOGLOBIN A1C 5.6 4.3 - 5.8 % [facility] Blood 02/22/2025 12:0 9 PM EDT 02/22/2025 12:17 PM EDT Ananya GAYLE LAB BLOOD ORDERABLES Final Resul t Performing Organization Address [facility] Co de Phone Number [address] [address] * Chlamydia trachomatis and Neisseria gonorrhoeae Nucleic Acid Amplification (02/20/2025 5:02 PM EDT) CHLAMYDIA TRACHOMATIS Not Detected Not Detected [facility] NEISERIA GONORRHOEAE Not Detected Not Detected [facility] SPECIMEN TYPE ENDOCERVICAL SALES OPERATIONS COORDINATOR [facility] Other (Endocervical) 02/20/2025 5:02 PM EDT 02/20/2025 8:14 PM EDT us Lucien Espino MD NON CULTURE MICROBIOLOGY Na l Result Performing Organization Address [facility] Co de Phone Number [address] [address] * US OB LESS THAN 14 WEEKS TRANSABDOMINAL (02/20/2025 4:29 PM EDT) Anatomical Region Laterality Modality Abdomen, Pelvis, Uterus/Adnexa U ltrasound 02/20/2025 4:31 PM EDT Impressions 02/20/2025 4:46 PM EDT 1. Single live IUP with CRL measurements consistent menstrual dating. 2. The ovaries appear grossly normal. Narrative 02/20/2025 4:46 PM EDT Procedure: US OB LESS THAN 14 WEEKS TRANSABDOMINAL 02/20/2025 3:58 PM US Indications: Dating / viability. Comparison: No relevant recent comparisons. Maternal age: 29 years. Technique: Transabdominal scan was performed. Color Doppler and M-mode imaging was performed to assess vascularity. FINDINGS: Gestational sac and number: 1. Gestational sac shape and size: Normal. FHR: 155.0 bpm CRL: 6.86 cm Yolk Sac: Not seen Gestational Age by LMP: 13 weeks 1 day(s) Ultrasound EGA: 13 weeks 1 day(s) Ultrasound MERRY: [id number] Established MERRY: 13 weeks 1 day(s) Uterus and ovaries: The myometrium is homogeneous. The ovaries are unremarkable. No adnexal masses seen. Cervical Length: 3.88 cm Tech Comments: Single live IUP. Procedure Note Lucien Espino MD - 02/20/2025 Procedure: US OB LESS THAN 14 WEEKS TRANSABDOMINAL 02/20/2025 3:58 PM US Indications: Dating / viability. Comparison: No relevant recent comparisons. Maternal age: 29 years. Technique: Transabdominal scan was performed. Color Doppler and M-modeimaging was performed to assess vascularity. FINDINGS: Gestational sac and number: 1. Gestational sac shape and size: Normal. FHR: 155.0 bpm CRL: 6.86 cm Yolk Sac: Not seen Gestational Age by LMP: 13 weeks 1 day(s) Ultrasound EGA: 13 weeks 1 day(s) Ultrasound MERRY: [id number] Established MERRY: 13 weeks 1 day(s) Uterus and ovaries: The myometrium is homogeneous. The ovaries areunremarkable. No adnexal masses seen. Cervical Length: 3.88 cm Tech Comments: Single live IUP. IMPRESSION: 1. Single live IUP with CRL measurements consistent menstrual dating. 2. The ovaries appear grossly normal. [facility] Kathy [facility] IM US OBSTETRIC Final Result * (ABNORMAL) Pap Test (02/20/2025 12:00 AM EDT) 02/20/2025 02/21/2025 10: 23 AM EDT Narrative SEE NARRATIVE - 03/02/2025 2:02 PM EDT [address] [address] Cargo Handler: Rickie Currie MD CHEMISTRY LECTURER Cytology Report FINAL DIAGNOSIS A. PAP SMEAR (THIN PREP) CE: SPECIMEN ADEQUACY: Satisfactory for evaluation; transformation zone absent/insufficient. INTERPRETATION: EPITHELIAL CELL ABNORMALITY - SQUAMOUS. Atypical squamous cells of undetermined significance. Parakeratosis This specimen was analyzed by the automated ThinPrep Imaging System ([employer] and manually rescreened by a global account manager and/or pathologist. Electronically Signed Out By: MD Shauna Ochoa CT(ASCP) By his/her signature above, the pathologist listed as making the Final Diagnosis certifies that he/she has personally reviewed this case and confirmed or corrected the diagnosis. The Pap test is a screening test primarily for squamous cancers and precursors and has associated false-negative and false-positive results. New technologies such as liquid-based preparations may decrease but will not eliminate all false-negative results. Regular sampling and follow-up of unexplained clinical signs and symptoms are recommended to minimize false negative results. PROCEDURES/ADDENDA HPV Testing (Reflex) Ordered Date: 02/22/2025 A. PAP SMEAR (THIN PREP) CE: High-risk HPV Panel w/ extended genotyping NEG HPV 16-NEG HPV 18-NEG HPV 45-NEG HPV 33/58-NEG HPV 31-NEG HPV 56/59/66-NEG HPV 51-NEG HPV 52-NEG HPV 35/39/68-NEG Performed by real-time polymerase chain reaction (PCR) at [address] using the FDA-approved [employer] Onclarity HPV Assay with extended genotyping. Uses of the assay in scenarios other than those approved by the FDA should be considered off-label use. The accuracy and precision of this test for all other off-label specimen sources has been verified in the Cytopathology Laboratory of the [facility] and has not been cleared or approved by the U.S. Food and Drug Administration. Clinical correlation is advised. The assay assesses the E6/E7 DNA target and utilizes human beta globin as an internal control. Cytology and HPV testing are screening assays and should not be used as the sole means of detecting cancer. False-positives and false-negatives can occur. CLINICAL HISTORY Date of Last Menstrual Period: 11-20-2024 Menstrual History: Other Clinical Conditions: Screening Pap SPECIMEN SOURCE A: PAP SMEAR (THIN PREP) CE Patient Name: ABHISHEK YANCEY : 1995 (Age: 29) Sex: F Institution: [facility] Location: [facility] Date of Collection: 02/20/2025 Date of Reported: 02/22/2025 16:51 Results to: Edward J Espino MD, BS us Lucien Espino MD CYTOLOGY ORDERABLES Edited Re sult - Final SEE NARRATIVE * LDH (02/13/2025 2:40 PM EDT) LDH 135 118 - 273 U/L [facility] Blood 02/13/2025 2:40 PM EDT 02/13/2025 2:59 PM EDT us Pierce Soto MD LAB BLOOD ORDERABLES Final Res ult Performing Organization Address City/[facility]/ZIP Co de Phone Number [address] [address] * (ABNORMAL) Comprehensive metabolic panel (02/13/2025 2:40 PM EDT) SODIUM 136 133 - 146 mmol/L [facility] POTASSIUM 3.1(L) 3.3 - 5.1 mmol/L [facility] CHLORIDE 104 96 - 108 mmol/L [facility] CO2 20(L) 21 - 35 mmol/L [facility] BUN 8 6 - 19 mg/dL [facility] CREATININE 0.40(L) 0.5 - 1.5 mg/dL [facility] GLUCOSE 112(H) 70 - 99 mg/dL [facility] ALBUMIN 3.7(L) 3.9 - 4.8 g/dL [facility] TOTAL PROTEIN 6.4(L) 6.5 - 8.0 g/dL [facility] CALCIUM 8.4 8.4 - 10.3 mg/dL [facility] ALKALINE PHOSPHATASE 46 39 - 117 U/L [facility] TOTAL BILIRUBIN <0.2 0.0 - 1.2 mg/dL [facility] AST 13 0 - 37 U/L [facility] ALT 11 0 - 40 U/L [facility] GLOBULIN 2.7 1 - 4.8 g/dL [facility] EGFR >120 >59 mL/min/1.7 3m2 [facility] Comment:Estimated glomerular filtration rate calculated using the CKD-EPI refit equation. ANION GAP 15 10 - 20 mmol/L [facility] Blood 02/13/2025 2:40 PM EDT 02/13/2025 2:59 PM EDT us Pierce Soto MD LAB BLOOD ORDERABLES Final Res ult [facility] [address] [place] [address] * (ABNORMAL) CBC and differential (02/13/2025 2:40 PM EDT) WBC 10.69 4.00 - 11.00 K/uL [facility] RBC 3.98(L) 4.00 - 5.20 M/uL [facility] HGB 11.1(L) 12.0 - 16.0 g/dL [facility] HCT 33.4(L) 36.0 - 46.0 % [facility] PLT 251 150 - 450 K/uL [facility] MCV 83.9 80.0 - 100.0 [facility] MCH 27.9 27.0 - 31.0 pg [facility] MCHC 33.2 32.0 - 36.0 g/dL [facility] RDW 14.5 11.5 - 14.5 % [facility] MPV 10.1 8.4 - 12.0 [facility] NRBC 0.00 0.00 /100 WBCs [facility] ABSOLUTE NRBC 0.00 0.00 K/uL [facility] DIFF METHOD Auto [facility] NEUTS 69.9 48.0 - 76.0 % [facility] LYMPHS 23.4 18.0 - 41.0 % [facility] MONOS 5.1 4.0 - 11.0 % [facility] EOS 0.7 0.0 - 5.0 % [facility] BASOS 0.3 0.0 - 1.5 % [facility] Granulocytes, immature (%) 0.6 0.0 - 0.9 % [facility] ABSOLUTE NEUTS 7.48 1.92 - 7.60 K/uL [facility] ABSOLUTE LYMPHS 2.50 0.72 - 4.10 K/uL [facility] ABSOLUTE MONOS 0.54 0.16 - 1.10 K/uL [facility] ABSOLUTE EOS 0.08 0.00 - 0.50 K/uL [facility] ABSOLUTE BASOS 0.03 0.00 - 0.15 K/uL [facility] Granulocytes, immature 0.06 0.00 - 0.09 K/uL [facility] Blood 02/13/2025 2:40 PM EDT 02/13/2025 2:59 PM EDT us Pierce Soto MD LAB BLOOD ORDERABLES Final Res ult [facility] [address] [place] [address] from Last 3 Months Additional Health Concerns Infection Onset Date Last Indicated COVID-19 04/21/2025 04/21/2025 Insurance [employer] CIGNA [employer] CIGNA [employer] CIGNA [employer] CIGNA WELL[employer] CIGNA WELLFLEET CIGNA WELLFLEET [facility] Care Teams Furniture Sales Consultant Relationship Specialty Start Date End Date Pcp, Unknown PCP - General 03/30/25 Pierce Stoo MD [address] [place] [address] [email or web address] Primary Oncologist Medical Oncology 08/06/20 Additional Source Comments The information contained in this document represents components of the legal health record. It is not the complete legal health record.[facility]
--- OUTSIDE RECORDS SUMMARY | 2025-05-08 19:25 | XMS_ITS | Encounter Summary ---
Author Organization [facility] Address [address] [place] [address] Phone Care Team Providers Care Hide Dropper Name Role Phone Cathy Latif MD Primary Care P rovider Pierce Soto MD Unavailable [phone] Cathy Latif MD Primary Care P rovider Pcp, Unknown Primary Care Provider Unavailabl e Encounter Details Date Type Department Care Team (Late st Contact Info) Description 01/27/2022 Procedure Pass [facility], Ct Scan - [facility] [address] [place] [address] Social History Tobacco Use Types Packs/Day Years [...] st Contact Info) Description 04/12/2025 Procedure Pass [facility] Echo Lab [address] [place] [address] 05/16/2025 7:30 AM EDT Appointment [facility] Echo Lab [address] [place] [address] Arleth [place], DO [address] [place] [address] [email or web address] 05/16/2025 9:00 AM EDT [facility] [address] [address] Arleth [place], [address] [place] [address] [email or web address] 05/25/2025 12:00 PM EDT Routine [facility] OBGYN & Midwifery [address] [place] [address] [place] [address] Bety Elmore MD [address] [place] [address], [address] [place] [address] [email or web address] 08/03/2025 2:20 PM EST [facility] [address] [address] Arleth [place], [address] [place] [address] [email or web address] 08/03/2025 3:30 PM EST [facility] [address] [address] Phuong Terry MBBS [address] [place] [address] documented as of this encounter Visit Diagnoses Not on filedocumented in this encounter Additional Health Concerns Infection Onset Date Last Indicated Resolved Time COVID-19 04/21/2025 04/21/2025 documented as of this encounter Care Teams Hide Dropper Relationship Specialty Start Date End Date Cathy Latif MD [email or web address] PCP - General Internal Medicine 09/21/19 04/02/23 Cathy Latif MD [address] [place] [address] [email or web address] PCP - General Internal Medicine 04/03/23 03/29/25 Pcp, Unknown PCP - General 03/30/25 Pierce Soto MD [address] [place] [address] [email or web address] Primary Oncologist Medical Oncology 08/06/20 documented as of this encounter Additional Source Comments The information contained in this document represents components of the legal health record. It is not the complete legal health record.[facility]
--- OUTSIDE RECORDS SUMMARY | 2025-05-08 19:25 | XMS_ITS | Encounter Summary ---
Author Organization [facility] Address [address] [place] [address] Phone Care Team Providers Care Equipment Scheduler Name Role Phone Cathy Latif MD Primary Care P rovider Pierce Soto MD Unavailable [phone] Zoila Suarez Unavailable Cathy Latif MD Primary Care P rovider Pcp, Unknown Primary Care Provider Unavailabl e Encounter Details Date Type Department Care Team (Late st Contact Info) Description 05/02/2020 Procedure Pass [facility], Ct Scan - [facility] [address] [place] [address] Social History Tobacco Use Types Packs/Day Years Used Date Smoking Tobacco: Never Smokeless Tobacco: Never Comments Unknown Sex and Gender Information Value [...] 04/12/2025 Procedure Pass [facility] Echo Lab [address] [place] [address] 05/16/2025 7:30 AM EDT Appointment [facility] Echo Lab [address] [place] [address] Arleth [place], DO [address] [place] [address] [email or web address] 05/16/2025 9:00 AM EDT Infusion [facility] at [address] [address] Arleth [place], [address] [place] [address] [email or web address] 05/25/2025 12:00 PM EDT Routine [facility] OBGYN & Midwifery [address] [place] [address] [place] [address] Bety Elmore MD [address] [place] [address], [address] [place] [address] 08/03/2025 2:20 PM EST Infusion [facility] Center at [address] [address] Arleth [place] DO [address] [place] [address] [email or web address] 08/03/2025 3:30 PM EST Office Visit [facility] at [address] [address] Phuong Terry MBBS [address] [place] [address] documented as of this encounter Visit Diagnoses Not on filedocumented in this encounter Additional Health Concerns Infection Onset Date Last Indicated Resolved Time CoV-Risk 05/01/2020 05/01/2020 05/15/2020 1:25 AM EDT CoV-Risk 03/24/2021 03/24/2021 04/03/2021 1:26 AM EDT COVID-19 04/21/2025 04/21/2025 documented as of this encounter Care Teams Equipment Scheduler Relationship Specialty Start Date End Date Cathy Latif MD [email or web address] PCP - General Internal Medicine 09/21/19 04/02/23 Cathy Latif MD [address] [place] [id number] [email or web address] PCP - General Internal Medicine 04/03/23 03/29/25 Pcp, Unknown PCP - General 03/30/25 Pierce Soto MD [address] [place] [address] [email or web address] Primary Oncologist Medical Oncology 08/06/20 Zoila Suarez PA [address] [place] [phone] [email or web address] Physician Guest Advisor Oncology 10/26/20 06/16/21 documented as of this encounter Additional Source Comments The information contained in this document represents components of the legal health record. It is not the complete legal health record.[facility]
--- OUTSIDE RECORDS SUMMARY | 2025-05-08 19:25 | XMS_ITS | Encounter Summary ---
Author Organization [facility] Address [address] [facility] [address] [place] [address] Phone Care Team Providers Care Crawler Tractor Operator Name Role Phone Cathy Latif MD Primary Care P rovider Pierce Soto MD Unavailable Zoila Suarez Unavailable [phone] Cathy Latif MD Primary Care P rovider Pcp, Unknown Primary Care Provider Unavailabl e Encounter Details Date Type Department Care Team (Late st Contact Info) Description 09/14/2020 Transcribe Orders Virtual Department [address] [place], [place] [phone] Cathy Latif MD [address] [place], [place] [phone] [email or web address] Other specified disorders of bone, unspecified site (Primary Dx) Social History Tobacco Use Types [...] st Contact Info) Description 04/12/2025 Procedure Pass [facility] Echo Lab [address] [place] [address] 05/16/2025 7:30 AM EDT Appointment [facility] Echo Lab [address] [place] [address] Arleth [place], [address] [place] [address] [email or web address] 05/16/2025 9:00 AM EDT Infusion [facility] at [address] [address] Arleth [place], [address] [place] [address] [email or web address] 05/25/2025 12:00 PM EDT Routine [facility] OBGYN & Midwifery [address] [place] [address] [place] [address] Bety Elmore MD [address] [place] [address], [address] [place] [address] [email or web address] 08/03/2025 2:20 PM EST Infusion [facility] Center at [address] [address] Arleth [place], [address] [place] [address] [email or web address] 08/03/2025 3:30 PM EST Office Visit [facility] Center at [address] [address] Phuong Terry MBBS [address] [place] [address] documented as of this encounter Results * XR Humerus (Left) (11/07/2020 1:25 PM EDT) Anatomical Region Laterality Modality Arm Left Computed Radiogr aphy 11/07/2020 1:31 PM EDT Impressions 11/07/2020 1:35 PM EDT Stable sclerotic proximal humeral diaphyseal lesion. A well-circumscribed sclerotic lesion such as this is not the typical appearance of lymphomatous skeletal involvement. POS [id number] Narrative 11/07/2020 1:35 PM EDT Left humerus, 2 views. Compare to today's shoulder films and April 2020 chest x-ray and chest CT. The well-circumscribed sclerotic lesion in the proximal humeral diaphysis is unchanged to the extent it was visible on the prior chest x-ray and CT further supporting a benign diagnosis. No additional humeral lesions are apparent. No signs of trauma. No soft tissue abnormalities Procedure Note Trav Bautista MD - 11/07/2020 Left humerus, 2 views. Compare to today's shoulder films and April 2020 chest x-ray and chestCT. The well-circumscribed sclerotic lesion in the proximal humeral diaphysisis unchanged to the extent it was visible on the prior chest x-ray and CTfurther supporting a benign diagnosis. No additional humeral lesions are apparent. No signs of trauma. No soft tissue abnormalities IMPRESSION: Stable sclerotic proximal humeral diaphyseal lesion. A well- circumscribedsclerotic lesion such as this is not the typical appearance oflymphomatous skeletal involvement. POS [id number] Cathy Latif MD IMG XR UPPER EX TREMITY Final Result * XR SHOULDER 2 VIEWS (LEFT) (11/07/2020 1:23 PM EDT) Anatomical Region Laterality Modality Shoulder Left Computed Radiogr aphy 11/07/2020 1:27 PM EDT Impressions 11/07/2020 1:31 PM EDT Proximal humeral sclerotic bone lesion is unchanged since 04/2020 further supporting a benign etiology. In the absence of symptoms I doubt this warrants further investigation. If some sort of follow-up is felt to be necessary, repeat shoulder plain films in one year is suggested. POS [id number] Narrative 11/07/2020 1:31 PM EDT 4 views. Compare to chest x-ray 05/01/[address] 05/03/2020. 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 There is no associated cortical destruction or expansion nor periosteal reaction. No new bony lesions have become apparent No signs of trauma, tumor, infection or arthritis in the shoulder itself. Procedure Note Trav Bautista MD - 11/07/2020 4 views. Compare to chest x-ray 05/01/[address] 05/03/2020. The previously noted sclerotic lesion in the anteromedial aspect of theproximal humeral diaphysis has not changed significantly since April2020 further supporting that this is a benign nonossifying fibroma orpossibly enchondroma. There is no associated cortical destruction or expansion nor periostealreaction. No new bony lesions have become apparent No signs of trauma, tumor, infection or arthritis in the shoulderitself. IMPRESSION: Proximal humeral sclerotic bone lesion is unchanged since 04/2020 furthersupporting a benign etiology. In the absence of symptoms I doubt thiswarrants further investigation. If some sort of follow-up is felt to benecessary, repeat shoulder plain films in one year is suggested. POS [id number] Cathy Latif MD IMG XR UPPER EX TREMITY Final Result documented in this encounter Visit Diagnoses Diagnosis Other specified disorders of bone, unspecified site- Primary Other specified disorders of bone, unspecified site Other specified disorders of bone, unspecified site documented in this encounter Additional Health Concerns Infection Onset Date Last Indicated Resolved Time CoV-Risk 03/24/2021 03/24/2021 04/03/2021 1:26 AM EDT COVID-19 04/21/2025 04/21/2025 documented as of this encounter Care Teams Crawler Tractor Operator Relationship Specialty Start Date End Date Cathy Latif MD [email or web address] PCP - General Internal Medicine 09/21/19 04/02/23 Cathy Latif MD [address] [place] [address] [email or web address] PCP - General Internal Medicine 04/03/23 03/29/25 Pcp, Unknown PCP - General 03/30/25 Pierce Soto MD [address] [place] [address] [email or web address] Primary Oncologist Medical Oncology 08/06/20 Zoila Suarez PA [address] [place] [address] [email or web address] Physician [place] Oncology 10/26/20 06/16/21 documented as of this encounter Additional Source Comments The information contained in this document represents components of the legal health record. It is not the complete legal health record.[facility]
== END ==
LOC: HO.CARD 14:30
PROVIDERS: Visit Provider Family Medicine
DX: R00.0 Tachycardia, unspecified (principal)
CPT/HCPCS: 93242

== ENCOUNTER → 2025-05-08 | Outpatient (BNV) | payer OTHER, SELFPAY | PROVIDERS: Visit Provider Internal Medicine | DX: I47.10 Supraventricular tachycardia, unspecified (principal) | CPT/HCPCS: 93244 ==